=== PATIENT | male | born 1975 | race Two or more races ===

== ENCOUNTER 2023-01-19 09:47 | Emergency (ER) | payer MEDICAID, OTHER ==
[~2023-01-19] VITALS: Ht 165.1 cm; Wt 54.1 kg
[2023-01-19 10:31] VITALS: BP 168/91; PULSE 94; RESP 16; TEMP 97.8; O2SAT 97
[2023-01-19] MEDS ORDERED: LIDOCAINE 1% HCL (LOCAL ANESTH.) INJ 20ML MDV IJ ONE (11:45)
[2023-01-19] MEDS ORDERED: LIDOCAINE 1% HCL (LOCAL ANESTH.) INJ 20ML MDV ONE (11:45)
[2023-01-19] MEDS ORDERED: AMOX500T86 PO (12:22)
== END 2023-01-19 12:29 | disposition home or self-care (01) ==
LOC: ER 09:47
DX: L02.511 Cutaneous abscess of right hand (principal); W54.0XXA Bitten by dog, initial encounter; Y93.89 Activity, other specified; Y92.89 Other specified places as the place of occurrence of the external cause; Y99.8 Other external cause status
CPT/HCPCS: 10060; 73140; 99283; J2001

== ENCOUNTER 2023-01-21 10:54 | Emergency (ER) | payer OTHER ==
[~2023-01-21] VITALS: Ht 165.1 cm; Wt 56.1 kg
[~2023-01-21 10:54] MED LIST: AMOX500T86 PO
[2023-01-21] MEDS: cloNIDine HCL 0.1 MG TAB PO ONE ×2 (11:30→11:47)
[2023-01-21 11:42] VITALS: BP 180/104; PULSE 94; RESP 16; TEMP 97.9; O2SAT 98
[2023-01-21] MEDS ORDERED: HYDROcodone-ACET 10/325MG TAB PO ONE (12:45)
[2023-01-21] MEDS ORDERED: KETOROLAC TROMETH 60MG/2ML VIAL IM ONE (12:45)
[2023-01-21] MEDS ORDERED: ACET300T58 PO (13:19)
[2023-01-21] MEDS ORDERED: BACIOIN EX (13:19)
[2023-01-21] MEDS ORDERED: IBUP-1454 PO (13:19)
== END 2023-01-21 13:31 | disposition home or self-care (01) ==
LOC: ER 10:54
DX: L02.511 Cutaneous abscess of right hand (principal); Z79.2 Long term (current) use of antibiotics
CPT/HCPCS: 96372; 99283; J1885